=== PATIENT | male | born 1955 | race Caucasian/White ===

== ENCOUNTER 2018-01-22 09:37 | Emergency (ER) | payer BC ==
[2018-01-22] MEDS ORDERED: GI Cocktail Oral Solution 30 ML PO ONE (10:40)
[2018-01-22] MEDS ORDERED: Lactated Ringers 1,000 ML IV ONE (10:43)
[2018-01-22] MEDS ORDERED: Sodium Chloride 0.9% 10 ML Syringe FLUSH PRN (10:43)
[2018-01-22 11:22] LABS: CHLORIDE,CL 102 mmol/L (98-107); SODIUM,NA 139 mmol/L (136-145)
--- NOTE | 2018-01-22 11:51 | EDM.PDOC ---
ED HPI GENERAL MEDICAL PROBLEM - General Chief Complaint: Abdominal Pain Stated Complaint: abdominal pain Time Seen by Provider: 01/22/18 10:25 Source of Information: Reports: Patient, Family History Limitations: Reports: No Limitations - History of Present Illness INITIAL COMMENTS - FREE TEXT/NARRATIVE: Patient reports abdominal pain since 0130 this morning. He states it is cramping in nature. It seems to him to start in the middle and radiates left and right. It is located in the epigastric region. He denies history of PR, CVA, ulcer, hernia. He does state a history of lung cancer that resulted in a full left lung removal per his report. He states he had 4 sessions of radiation after the removal, but he has had no follow up since that time. He has not smoked since the lung removal but prior to that was a 2-3 pack per day smoker. He denies drug use, and does admit to occasional alcohol consumption. Once or twice in a 2-3 week period only. Additional symptoms include chill, sweating, and shallow breathing. Denies any other surgical procedures. No allergies and is not on any daily medications. He denies nausea, vomiting, blood in urine or stool, no chest pain, no headache or LOC, is having regular bowel and bladder movements. He also denies any history of diabetes, HTN, high cholesterol, COPD, asthma, CAD. Onset: Today, Sudden Duration: Intermittent Location: Reports: Abdomen Quality: Reports: Other (cramping) Severity: Moderate Upper Abdomen Pain Score (Numeric/FACES): 8 - Related Data Allergies Allergy/AdvReac Type Severity Reaction Status Date / Time No Known Allergies Allergy Verified 01/22/18 10:00 Home Meds: Home Meds . [No Known Home Meds] 01/22/18 [History] Past Medical History Oncologic (Cancer) History: Reports: Lung Social & Family History - Tobacco Use Smoking Status *Q: Unknown Ever Smoked - Recreational Drug Use Recreational Drug Use: No ED ROS GENERAL - Review of Systems Review Of Systems: See Below Constitutional: Reports: Chills, Night Sweats HEENT: Reports: No Symptoms Respiratory: Reports: Shortness of Breath Cardiovascular: Reports: No Symptoms Endocrine: Reports: No Symptoms GI/Abdominal: Reports: Abdominal Pain : Reports: No Symptoms Musculoskeletal: Reports: No Symptoms Skin: Reports: No Symptoms Neurological: Reports: No Symptoms Psychiatric: Reports: No Symptoms Hematologic/Lymphatic: Reports: No Symptoms Immunologic: Reports: No Symptoms ED EXAM, GI/ABD - Physical Exam Exam: See Below Exam Limited By: No Limitations General Appearance: Alert, WD/WN, No Apparent Distress Eyes: Bilateral: EOMI Head: Atraumatic, Normocephalic Neck: Normal Inspection, Supple, Non-Tender, Full Range of Motion Respiratory/Chest: No Respiratory Distress, Lungs Clear, Normal Breath Sounds ( absent left lower lung sounds due to removal of lung), No Accessory Muscle Use, Chest Non-Tender Cardiovascular: Normal Peripheral Pulses, Regular Rate, Rhythm, No Edema, No Gallop, No JVD, No Murmur, No Rub GI/Abdominal Exam: Normal Bowel Sounds, Soft, Non-Tender, No Organomegaly, No Distention, No Abnormal Bruit, No Mass, Pelvis Stable Back Exam: Normal Inspection, Full Range of Motion, NT Extremities: Normal Inspection, Normal Range of Motion, Non-Tender, Normal Capillary Refill, No Pedal Edema Neurological: Alert, Oriented, CN II-XII Intact, Normal Cognition, Normal Gait, Normal Reflexes, No Motor/Sensory Deficits Psychiatric: Normal Affect, Normal Mood Skin Exam: Warm, Dry, Intact, Normal Color, No Rash Lymphatic: No Adenopathy EKG INTERPRETATION EKG Date: 01/22/18 Time: 10:48 Rhythm: NSR Rate (Beats/Min): 79 [place]: Normal P-Wave: Present QRS: Normal ST-T: Normal QT: Normal Comparison: NA - No Prior EKG EKG Interpretation Comments: 1. Sinus rhythm with marked rhythm irregularity, possible non conducted PAC, SA block, AV block or sinus pause 2. moderate intraventricular conduction delay 3. nonspecific t-wave abnormality Course - Vital Signs Last Recorded V/S: Last Vital Signs Temp 36.1 C 01/22/18 09:40 Pulse 90 01/22/18 09:40 Resp 16 01/22/18 09:40 BP 164/85 H 01/22/18 09:40 Pulse Ox 98 01/22/18 09:40 - Orders/Labs/Meds Orders: Active Orders 24 hr Category Date Time Status EKG Documentation Completion [RC] ROUTINE Care 01/22/18 10:40 Active Abdomen Pelvis w Cont [CT] Stat Exams 01/22/18 11:57 Taken URINALYSIS W/MICROSCOPIC [UA W/MICROSCOPIC] [URIN] Stat Lab 01/22/18 12:27 Ordered Sodium Chloride 0.9% [Saline Flush] Med 01/22/18 10:43 Active 10 ml FLUSH ASDIRECTED PRN Saline Lock Insert [OM.PC] Routine Oth 01/22/18 10:43 Ordered Medication Orders Sodium Chloride (Saline Flush) 10 ml FLUSH ASDIRECTED PRN PRN Reason: Keep Vein Open Labs: Laboratory Tests 01/22/18 01/22/18 01/22/18 Range/Units 10:54 10:54 10:54 WBC 13.2 H (4.0-10.0) x10^3/uL RBC 5.26 (4.5-6.0) x10^6/uL Hgb 15.8 (14.0-18.0) g/dL Hct 45.9 (40.0-52.0) % MCV 87.3 (78.0-93.0) fL MCH 30.0 (26.0-32.0) pg MCHC 34.4 (32.0-36.0) g/dL RDW Coeff of [place] 12.7 (10.0-15.0) % Plt Count 283 (130-400) x10^3/uL Neut % (Auto) 92.2 H (50.0-80.0) % Lymph % (Auto) 4.0 L (25.0-50.0) % [place] % (Auto) 3.6 (2.0-11.0) % Eos % (Auto) 0.0 (0.0-4.0) % Baso % (Auto) 0.2 (0.2-1.2) % PT 10.1 (9.8-11.8) SEC INR 0.9 L (2.0-3.5) Sodium 139 (136-145) mmol/L Potassium 3.8 (3.5-5.1) mmol/L Chloride 102 (98-107) mmol/L Carbon Dioxide 27 (21-32) mmol/L Anion Gap 13.8 BUN 11 (7-18) mg/dL Creatinine 1.1 (0.70-1.30) mg/dL Est Cr Clr Drug Dosing TNP Estimated GFR (MDRD) > 60 Glucose 152 H (74-106) mg/dL Calcium 9.5 (8.5-10.1) mg/dL Corrected Calcium 9.66 (8.5-10.1) mg/dL Total Bilirubin 0.4 (0.2-1.0) mg/dL AST 26 (15-37) U/L ALT 36 (16-63) U/L Alkaline Phosphatase 129 H (46-116) U/L Troponin I < 0.017 (<=0.056) ng/mL C-Reactive Protein 1.5 H (<=0.9) mg/dL Total Protein 8.4 H (6.4-8.2) g/dL Albumin 3.8 (3.4-5.0) g/dL Globulin 4.6 Albumin/Globulin Ratio 0.83 Amylase (25-115) U/L 01/22/18 Range/Units 10:54 WBC (4.0-10.0) x10^3/uL RBC (4.5-6.0) x10^6/uL Hgb (14.0-18.0) g/dL Hct (40.0-52.0) % MCV (78.0-93.0) fL MCH (26.0-32.0) pg MCHC (32.0-36.0) g/dL RDW Coeff of [place] (10.0-15.0) % Plt Count (130-400) x10^3/uL Neut % (Auto) (50.0-80.0) % Lymph % (Auto) (25.0-50.0) % [place] % (Auto) (2.0-11.0) % Eos % (Auto) (0.0-4.0) % Baso % (Auto) (0.2-1.2) % PT (9.8-11.8) SEC INR (2.0-3.5) Sodium (136-145) mmol/L Potassium (3.5-5.1) mmol/L Chloride (98-107) mmol/L Carbon Dioxide (21-32) mmol/L Anion Gap BUN (7-18) mg/dL Creatinine (0.70-1.30) mg/dL Est Cr Clr Drug Dosing Estimated GFR (MDRD) Glucose (74-106) mg/dL Calcium (8.5-10.1) mg/dL Corrected Calcium (8.5-10.1) mg/dL Total Bilirubin (0.2-1.0) mg/dL AST (15-37) U/L ALT (16-63) U/L Alkaline Phosphatase (46-116) U/L Troponin I (<=0.056) ng/mL C-Reactive Protein (<=0.9) mg/dL Total Protein (6.4-8.2) g/dL Albumin (3.4-5.0) g/dL Globulin Albumin/Globulin Ratio Amylase 38 (25-115) U/L Meds: Medications Generic Name Dose Route Start Last Admin Trade Name Freq PRN Reason Stop Dose Admin Sodium Chloride 10 ml 01/22/18 10:43 Saline Flush FLUSH ASDIRECTED PRN Keep Vein Open Discontinued Medications Generic Name Dose Route Start Last Admin Trade Name Freq PRN Reason Stop Dose Admin Al Hydroxide/Mg Hydroxide 30 ml 01/22/18 10:40 01/22/18 10:58 Gi Cocktail PO 01/22/18 10:41 30 ml ONETIME ONE Administration Lactated Ringer's 1,000 mls @ 999 mls/hr 01/22/18 10:43 01/22/18 11:01 Ringers, Lactated IV 01/22/18 11:43 999 mls/hr .BOLUS ONE Administration - Re-Assessments/Exams Free Text/Narrative Re-Assessment/Exam: 01/22/18 13:59 CT scan shows no acute process. Labwork largely normal. Slight elevation to WBC, CRP. Recommended follow up with primary to monitor gall bladder. Departure - Departure Time of Disposition: 13:43 Disposition: Home, Self-Care 01 Condition: Good Clinical Impression: Abdominal pain - Discharge Information Instructions: Abdominal Pain, Adult, [id number] Referrals: PCP,None [Primary Care Provider] - Forms: ED Department Discharge Additional Instructions: Your labwork today appears largely normal. The CT did show some diverticulosis, chronic constipation, gall bladder has mild distension without stones. No masses were seen. You do need to follow up with a primary doctor. You do have some high blood pressure and your blood glucose level is 152. You should be screened for both hypertension and diabetes. You should also get a primary to monitor your gall bladder. It is distended and may eventually need to be removed. I do want you to try prilosec OTC. Take one tablet daily for 1 month then go off of the medication to see if that helps with your abdominal pain. Stay hydrated and you may need to take some stool softeners like senna or docusate to help with your chronic constipation. Please call us if you have any questions or concerns. - Problem List & Annotations (1) Abdominal pain SNOMED Code(s): 97360317 Code(s): R10.9 - UNSPECIFIED ABDOMINAL PAIN Status: Acute Current Visit: Yes Qualifiers: Abdominal location: upper abdomen, unspecified Qualified Code(s): R10.10 - Upper abdominal pain, unspecified - Problem List Review Problem List Initiated/Reviewed/Updated: Yes - My Orders Last 24 Hours: My Active Orders 01/22/18 10:40 EKG Documentation Completion [RC] ROUTINE 01/22/18 10:43 Sodium Chloride 0.9% [Saline Flush] 10 ml FLUSH ASDIRECTED PRN Saline Lock Insert [OM.PC] Routine 01/22/18 11:57 Abdomen Pelvis w Cont [CT] Stat 01/22/18 12:27 URINALYSIS W/MICROSCOPIC [UA W/MICROSCOPIC] [URIN] Stat - Assessment/Plan Last 24 Hours: My Active Orders 01/22/18 10:40 EKG Documentation Completion [RC] ROUTINE 01/22/18 10:43 Sodium Chloride 0.9% [Saline Flush] 10 ml FLUSH ASDIRECTED PRN Saline Lock Insert [OM.PC] Routine 01/22/18 11:57 Abdomen Pelvis w Cont [CT] Stat 01/22/18 12:27 URINALYSIS W/MICROSCOPIC [UA W/MICROSCOPIC] [URIN] Stat Assessment:: abdominal pain Plan: Your labwork today appears largely normal. The CT did show some diverticulosis, chronic constipation, gall bladder has mild distension without stones. No masses were seen. You do need to follow up with a primary doctor. You do have some high blood pressure and your blood glucose level is 152. You should be screened for both hypertension and diabetes. You should also get a primary to monitor your gall bladder. It is distended and may eventually need to be removed. I do want you to try prilosec OTC. Take one tablet daily for 1 month then go off of the medication to see if that helps with your abdominal pain. Stay hydrated and you may need to take some stool softeners like senna or docusate to help with your chronic constipation. Please call us if you have any questions or concerns.
[2018-01-22] MEDS ORDERED: Pantoprazole 40 MG Vial IVPUSH ONE (13:21)
== END 2018-01-22 13:48 | disposition home or self-care (01) ==
LOC: VM.ED 09:37
DX: R10.13 Epigastric pain (principal); R10.10 Upper abdominal pain, unspecified; Z85.118 Personal history of other malignant neoplasm of bronchus and lung
CPT/HCPCS: 36415; 74177; 80053; 82150; 84484; 85025; 85610; 86140; 93005; 96361; 96374; 99284; A9270; C9113; J7120